=== PATIENT | female | born 1990 | race Caucasian/White ===

== ENCOUNTER → 2022-07-22 | Outpatient (CLI) | payer MEDICAID ==
[2022-07-23 22:37] LABS: BACTERIAL VAGINOSIS DNA POSITIVE (NEGATIVE); CANDIDA KRUSEI DNA NEGATIVE (NEGATIVE); TRICHOMONAS VAGINALIS DNA NEGATIVE (NEGATIVE)
[2022-07-23 22:38] LABS: CANDIDA GLABRATA DNA NEGATIVE (NEGATIVE); CANDIDA GROUP DNA NEGATIVE (NEGATIVE)
[2022-07-23 23:26] LABS: CHLAMYDIA TRACHOMATIS DNA NEGATIVE (NEGATIVE); NEISSERIA GONORRHOEAE DNA NEGATIVE (NEGATIVE)
== END ==
LOC: LAB.WC 14:45
PROVIDERS: ATTEND Nurse Practitioner
DX: N89.8 Other specified noninflammatory disorders of vagina (principal)
CPT/HCPCS: 81514; 87491; 87591; 87661

== ENCOUNTER 2022-10-22 13:07 | Day surgery (SDC) | payer MEDICAID ==
[2022-10-22 13:41] LABS: HCG UR QUAL NEGATIVE
--- NOTE | 2022-10-22 13:53 | ANESTHESIA ---
Pre-Anesthesia VS, & Labs - Diagnosis Koilocytotic atypical or HPV, CIN1 - Procedure LEEP under anesthesia Vital Signs: Temp Pulse Resp BP Pulse Ox O2 Flow Rate 37.3 C 65 16 89/68 L 100 10/22/22 13:43 10/22/22 13:43 10/22/22 13:43 10/22/22 13:43 10/22/22 13:43 Height: 5 ft 4 in Weight (kg): 39.9 kg Body Mass Index: 15.0 BMI Classification: Underweight - NPO >8 hours - Is Patient ?: No - Lab Results Lab results reviewed: Yes Home Medications and Allergies Home Medications: Ambulatory Orders Fluoxetine HCl [Prozac] 20 mg PO DAILY 10/18/22 Fluoxetine HCl [Prozac] 20 mg PO DAILY 10/18/22 Allergies/Adverse Reactions: Allergies Allergy/AdvReac Type Severity Reaction Status Date / Time No Known Drug Allergies Allergy Verified 10/18/22 12:27 Anes History & Medical History - Anesthetic History Anesthesia Complications: reports: No previous complications Family history of Anesthesia Complications: Denies Family history of Malignant Hyperthermia: Denies - Medical History Cardiovascular: reports: None Pulmonary: reports: Asthma, Other Gastrointestinal: reports: None Urinary: reports: None Musculoskeletal: reports: None Endocrine/Autoimmune: reports: None Skin: reports: None - Surgical History General: reports: Appendectomy Exam General: Alert, Oriented x3, Cooperative Dental: WNL Mouth Openin Fingerbreadth Neck Mobility: Normal Mallampati classification: II Thyromental Distance: 4-6 cm Respiratory: Lungs clear, Normal breath sounds, No respiratory distress Cardiovascular: Regular rate Neurological: Normal speech Mental/Cognitive Status: Alert/Oriented X3, Normal for patient Cognitive Status: Within normal limits Plan Anesthesia Type: General Consent for Procedure(s) Verified and Reviewed: Yes Code Status: Attempt Resuscitation ASA classification: 2-Mild systemic disease Is this case an emergency?: No
[2022-10-22] MEDS ORDERED: HYDROmorphone 0.5 MG/0.5 ML SYRINGE IVP PRN (13:59)
[2022-10-22] MEDS ORDERED: ePHEDrine 50 MG/ML VIAL IVP PRN (13:59)
[2022-10-22] MEDS ORDERED: ATROPINE ABBOJECT 1 MG/10 ML SYRINGE IVP PRN (13:59)
[2022-10-22] MEDS ORDERED: METOCLOPRAMIDE 10 MG/2 ML VIAL IVP PRN (13:59)
[2022-10-22] MEDS ORDERED: MORPHINE 2 MG/ML CARPUJECT IVP PRN (13:59)
[2022-10-22] MEDS ORDERED: ONDANSETRON 4 MG/2 ML VIAL IVP PRN (13:59)
[2022-10-22] MEDS ORDERED: fentaNYL 100 MCG/2 ML VIAL IVP PRN (13:59)
[2022-10-22] MEDS ORDERED: NALOXONE 0.4 MG/ML VIAL IVP PRN (13:59)
[2022-10-22] MEDS ORDERED: LACTATED RINGERS 1,000 ML IV SCH (14:00)
[2022-10-22] MEDS ORDERED: LIDOCAINE-MPF 1% 30 ML VIAL ONE (14:02)
[2022-10-22] MEDS ORDERED: LACTATED RINGERS 1,000 ML IV ONE ×2 (14:02→15:56)
[2022-10-22] MEDS ORDERED: SEVOFLURANE 250 ML LIQUID INH ONE (14:07)
[2022-10-22] MEDS ORDERED: LIDOCAINE-PF 2% 10 ML AMP SUBQ ONE (14:09)
[2022-10-22] MEDS ORDERED: MIDAZOLAM 2 MG/2 ML VIAL ONE (14:09)
[2022-10-22] MEDS ORDERED: PROPOFOL 200 MG/20 ML VIAL IVP ONE ×2 (14:09→15:22)
[2022-10-22] MEDS ORDERED: ONDANSETRON 4 MG/2 ML VIAL ONE (15:27)
[2022-10-22] MEDS ORDERED: DEXAMETHASONE 4 MG/ML VIAL ONE (15:27)
[2022-10-22] MEDS ORDERED: ePHEDrine 50 MG/ML VIAL IVP ONE (15:34)
[2022-10-22] MEDS ORDERED: FERRIC SUBSULFATE 8 ML SOLUTION (FOR OR) TOP ONE (15:39)
[2022-10-22] MEDS ORDERED: LIDOCAINE 1% 50 ML MDV SUBQ ONE ×2 (15:39)
--- NOTE | 2022-10-22 16:13 | ANESTHESIA POST OP EVALUATION ---
Anesthesia Post Eval - Post Anesthesia Eval Vitals: Last Vital Signs Temp 36.6 C 10/22/22 16:05 Pulse 85 10/22/22 16:05 Resp 10 L 10/22/22 16:05 BP 116/63 10/22/22 16:05 Pulse Ox 100 10/22/22 16:05 O2 Flow Rate CV Function Including HR & BP: Stable Pain Control: Satisfactory Nausea & Vomiting: Negative Mental Status: Baseline Respiratory Status: Airway Patent Hydration Status: Satisfactory Anesthesia Complications: None
[2022-10-22 16:56] VITALS: BP 118/72
--- NOTE | 2022-10-22 22:31 | OPERATIVE REPORT ---
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 Adequate anesthesia obtained. Placed in dorsal lithotomy position. Insulated speculum with suction placed. 1% lidocaine used to infiltrate cervix prior to LEEP for post procedure discomfort. Loop electrode bovie used to perform conization with removal of transformation zone and part of endocervix. Endocervix with concern for high grade on colposcopy/ECC previously collected in office. Adequate excision of cervix obtained in two passes. Marked at 12 o'clock. Roller ball electrode used to cauterize excision site and hemostasis achieved. ECC performed. Monsels solution applied. Hemostasis. Counts correct x2. Transferred to PACU in stable condition.
== END 2022-10-22 13:08 | disposition home or self-care (01) ==
LOC: SDS 13:07
PROVIDERS: ATTEND Obstetrics & Gynecology
PROC: 0UBC7ZX Excision of Cervix, Via Natural or Artificial Opening, Diagnostic (ICD-10-PCS; principal; 2022-10-22 14:15)
DX: N87.1 Moderate cervical dysplasia (principal); R63.6 Underweight; Z68.1 Body mass index [BMI] 19.9 or less, adult
CPT/HCPCS: 57522; 81025; J3490; J7120